=== PATIENT | female | born 1975 | race African-American/Black ===

== ENCOUNTER 2018-11-07 01:28 | Emergency (ER) | payer MEDICARE, OTHER ==
[~2018-11-07] VITALS: Ht 154.9 cm; Wt 90.7 kg
[2018-11-07 01:35] VITALS: BP 119/80
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
--- NOTE | 2018-11-07 01:37 | NUR ---
ED Nurse Note: Endosed to Tyron /RN for continue care.
--- NOTE | 2018-11-07 01:38 | NUR ---
ED Nurse Note: ERMD notified.
--- NOTE | 2018-11-07 01:38 | NUR ---
ED Nurse Note: PT REFUSED BLOOD WORK AND REFUSED TO PROVIDE URINE SAMPLE, PT STATES SHE DOESN'T HAVE TO GO TO RESTROOM AT THIS TIME. Addendum: 11/07/18 at 0246 by [email or web address] ED Nurse Note: PT REFUSED BLOOD WORK AND REFUSED TO PROVIDE URINE SAMPLE, PT STATES SHE DOESN'T HAVE TO GO TO RESTROOM AT THIS TIME. ALECIA notified.
--- NOTE | 2018-11-07 01:38 | NUR ---
Rosalva mckeon in EDM - 11/07/18 at 0246 by [email or web address] ED Nurse Note: ERMD notified.
[2018-11-07] MEDS ORDERED: LORazepam 1mg tab ORAL ONE (02:30)
--- NOTE | 2018-11-07 02:30 | NUR ---
ED Nurse Note: pt states she needs time before blood work. ERMD aware.
--- NOTE | 2018-11-07 02:36 | NUR ---
ED Nurse Note: Received report from Brissa. Will continue to monitor. Addendum: 11/07/18 at 0528 by ABIDA ED Nurse Note: Received report from Brissa, Pt is very uncooperative at this time, will continue to monitor.
--- NOTE | 2018-11-07 02:38 | NUR ---
ED Nurse Note: Received report from Tyron/RN, Pt is very confused at this time. will continue to monitor.
--- NOTE | 2018-11-07 03:29 | NUR ---
ED Nurse Note: Urine collected and sent to Lab. Pt agreed to draw blood when Dr. Salazar talked to her, but refused when we tried at bed side. Pt states that she' I will do it in the morning".
[2018-11-07 03:36] LABS: APPEARANCE,URINE CLEAR; BILIRUBIN, URINE 1+ (NEGATIVE); GLUCOSE, URINE (UA) NEGATIVE (NEGATIVE); KETONES,URINE 2+ (NEGATIVE); LEUKOCYTE ESTERASE ,URINE 1+ (NEGATIVE); NITRITE,URINE NEGATIVE (NEGATIVE); PH,URINE 6 (4.5-8.0); PROTEIN,URINE 2+ (NEGATIVE); UROBILINOGEN,URINE 1 MG/DL (0.0-1.0)
[2018-11-07 03:43] LABS: COLOR,URINE YELLOW
--- NOTE | 2018-11-07 03:44 | NUR ---
ED Nurse Note: No IV acess at this time, Pt even refused Charge nurse/Lucas with blood draw. Informed Dr. Salazar.
[2018-11-07 04:02] VITALS: BP 119/80
--- NOTE | 2018-11-07 04:02 | NUR ---
ED Nurse Note: Pt walked out of ED from the front door after she spent more that half hour arranging her personal belongings on her bed, as soon as she finished that. She said that : " I am discharged. I am leaving. " Informed Dr. Salazar and charge nurse Melanie.
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
== END 2018-11-07 04:02 | disposition left against medical advice (07) ==
LOC: EDBD 01:28 → EMR 01:55
DX: F41.9 Anxiety disorder, unspecified (principal); F25.9 Schizoaffective disorder, unspecified; Z91.14 Patient's other noncompliance with medication regimen; Z79.899 Other long term (current) drug therapy; R22.43 Localized swelling, mass and lump, lower limb, bilateral
CPT/HCPCS: 80307; 81003; 81025; 96360; 99284

== ENCOUNTER 2019-04-04 20:40 | Emergency (ER) | payer MEDICARE, OTHER ==
[~2019-04-04] VITALS: Ht 162.6 cm; Wt 81.6 kg
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
[2019-04-04 20:59] VITALS: BP 112/75
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
--- NOTE | 2019-04-04 21:57 | NUR ---
ED Nurse Note: Patient sleeping, vital signs stable. Will continue to monitor.
--- NOTE | 2019-04-04 22:58 | NUR ---
ED Nurse Note: Patient still sleeping, no s/s of acute distress, patient breathing even and unlabored, will continue to monitor.
[2019-04-04 23:44] VITALS: BP 102/67
--- NOTE | 2019-04-04 23:58 | NUR ---
ED Nurse Note: Patient is still sleeping with no s/s of acute distress. Will continue to monitor.
--- NOTE | 2019-04-05 00:59 | NUR ---
ED Nurse Note: Patient resting comfortably, vital signs within normal range, Will continue to monitor.
[2019-04-05 01:27] VITALS: BP 112/82
--- NOTE | 2019-04-05 02:00 | NUR ---
ED Nurse Note: Patient sleeping, will continue to monitor.
--- NOTE | 2019-04-05 03:01 | NUR ---
ED Nurse Note: Patient sleeping with no s/s of acute distress. Will continue to monitor.
[2019-04-05 04:09] VITALS: BP 104/62
--- NOTE | 2019-04-05 04:09 | NUR ---
ED Nurse Note: Patient resting comfortably, vital signs stable and documented.
--- NOTE | 2019-04-05 05:23 | NUR ---
ED Nurse Note: Patient removed security monitor, is sleeping soundly with no s/s of acute distress. Will continue to monitor.
[2019-04-05 06:38] VITALS: BP 104/62
--- NOTE | 2019-04-05 06:38 | NUR ---
ED Nurse Note: Patient cleared for discharge, verbalized understanding of discharge instructions. ID band removed. Patient provided with a toothbrush, toothpaste and mouthwash to freshen up before departure. Patient departed with all belongings, was ambulatory with steady gait and A&Ox4.
== END 2019-04-05 06:38 | disposition home or self-care (01) ==
LOC: EDUNIT# 20:40 → EMR 20:50 → EDBD 21:07 → EMR 04-05 01:11
DX: R51 Headache (principal); R10.84 Generalized abdominal pain; Z88.8 Allergy status to other drugs, medicaments and biological substances; F20.9 Schizophrenia, unspecified; Z88.6 Allergy status to analgesic agent; Z88.0 Allergy status to penicillin
CPT/HCPCS: 99282

== ENCOUNTER 2019-09-10 11:34 | Emergency (ER) | payer MEDICARE, OTHER ==
[~2019-09-10] VITALS: Ht 157.5 cm; Wt 72.6 kg
[2019-09-10 11:36] VITALS: BP 126/83
[2019-09-10 13:16] LABS: APPEARANCE,URINE CLEAR; BILIRUBIN, URINE NEGATIVE (NEGATIVE); COLOR,URINE PALE YELLOW; GLUCOSE, URINE (UA) NEGATIVE (NEGATIVE); KETONES,URINE NEGATIVE (NEGATIVE); LEUKOCYTE ESTERASE ,URINE 3+ (NEGATIVE); NITRITE,URINE NEGATIVE (NEGATIVE); PH,URINE 6 (4.5-8.0); PROTEIN,URINE 1+ (NEGATIVE); UROBILINOGEN,URINE NORMAL MG/DL (0.0-1.0)
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
[2019-09-10] MEDS ORDERED: NITROFURANTOIN100 M2 ORAL (13:50)
[2019-09-10 13:55] VITALS: BP 130/80
--- NOTE | 2019-09-10 14:53 | Diagnostic Imaging Report ---
Indication: Right ankle pain Technique: 3 views of the right ankle Comparison: none Findings: There is a small plantar spur. No acute fractures. No dislocations. The joint spaces are preserved. Impression: No acute bony trauma
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
== END 2019-09-10 13:55 | disposition home or self-care (01) ==
LOC: EDBD 11:34 → EMR 12:04
DX: N39.0 Urinary tract infection, site not specified (principal); I89.0 Lymphedema, not elsewhere classified; Z59.0 Homelessness; Z88.0 Allergy status to penicillin; Z88.6 Allergy status to analgesic agent; I10 Essential (primary) hypertension; K21.9 Gastro-esophageal reflux disease without esophagitis; B20 Human immunodeficiency virus [HIV] disease; M25.572 Pain in left ankle and joints of left foot; M25.571 Pain in right ankle and joints of right foot
CPT/HCPCS: 81003; 87086; 99283

== ENCOUNTER 2020-02-09 11:39 | Emergency (ER) | payer MEDICARE, OTHER ==
[~2020-02-09] VITALS: Ht 165.1 cm; Wt 54.4 kg
[~2020-02-09 11:39] MED LIST: NITROFURANTOIN100 M2 ORAL
[2020-02-09 11:42] VITALS: BP 126/81
--- NOTE | 2020-02-09 11:46 | NUR ---
ED Nurse Note: Pt RAINA from [facility]. She was having anxiety attack after breakup with boyfriend. VSS. Pt is alert and orientedx4, ambulatory. Pt denies SI or HI. Pt has been seen by ALECIA.
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
[2020-02-09 12:25] LABS: APPEARANCE,URINE CLEAR; BILIRUBIN, URINE NEGATIVE (NEGATIVE); COLOR,URINE PALE YELLOW; GLUCOSE, URINE (UA) NEGATIVE (NEGATIVE); KETONES,URINE NEGATIVE (NEGATIVE); LEUKOCYTE ESTERASE ,URINE 2+ (NEGATIVE); NITRITE,URINE NEGATIVE (NEGATIVE); PH,URINE 8 (4.5-8.0); PROTEIN,URINE NEGATIVE (NEGATIVE); UROBILINOGEN,URINE NORMAL MG/DL (0.0-1.0)
[2020-02-09 13:30] VITALS: BP 120/87
--- NOTE | 2020-02-09 13:30 | NUR ---
ER DISCHARGE NOTE: Patient is cleared to be discharged per ERMD, pt is aox4, on room air, with stable vital signs. pt was given dc and prescription instructions, pt was able to verbalize understanding, pt id band removed. pt is able to ambulate with steady gait. pt took all belongings. Pt provided resources.
== END 2020-02-09 13:30 | disposition home or self-care (01) ==
LOC: EDBD 11:39 → EMR 12:11
DX: F25.9 Schizoaffective disorder, unspecified (principal); B20 Human immunodeficiency virus [HIV] disease; I10 Essential (primary) hypertension; F17.200 Nicotine dependence, unspecified, uncomplicated; Z88.0 Allergy status to penicillin; Z88.6 Allergy status to analgesic agent; Z88.8 Allergy status to other drugs, medicaments and biological substances; Z91.012 Allergy to eggs
CPT/HCPCS: 80307; 81003; 81025; 99282